=== PATIENT | female | born 1980 | race Caucasian/White ===

== ENCOUNTER 2017-06-14 13:00 | Outpatient (CLI) | payer BC ==
[2017-06-14 12:06] LABS: Hemoglobin 14.2 g/dL (12.0-16.0); Mean Corpuscular HGB CONC 33.6 g/dL (32.0-36.0); Mean Corpuscular Hemoglobin 31.1 pg (27.0-31.0); Mean Corpuscular Volume 92.6 fl (81.0-99.0); Mean Platelet Volume 6.2 fL (7.4-10.4); Platelet Count 228 thou/uL (130-400); RBC Distribution Width 11.6 % (11.5-14.5); Red Blood Cell (RBC) Count 4.56 mill/uL (4.20-5.40); White Blood Cell (WBC) Count 8.2 thou/uL (4.8-10.8)
[2017-06-14 12:16] LABS: BHCG - Serum Negative (NEGATIVE); Pregs Control Background? CLEAR/WHITE (CLR/WHITE); Pregs Control Bar Appear? YES (CONTROL BAR)
== END 2017-06-14 13:01 | disposition home or self-care (01) ==
LOC: LABBT 13:00
PROVIDERS: ATTEND Orthopaedic Surgery Hand Surgery
DX: Z01.812 Encounter for preprocedural laboratory examination (principal); L72.8 Other follicular cysts of the skin and subcutaneous tissue
CPT/HCPCS: 84703; 85027

== ENCOUNTER 2017-06-15 07:07 | Day surgery (SDC) | payer BC ==
[2017-06-14 10:57] VITALS: BMI 23.5
[2017-06-15] MEDS ORDERED: Scopolamine 1.5 mg/72 hour Patch ONE (08:34)
[2017-06-15] MEDS ORDERED: CEFAZOLIN/Water 2 GM/20 ML SYRINGE ONE (08:37)
[2017-06-15] MEDS ORDERED: Bupivacaine PF 0.5% 30 ML VIAL ONE (09:06)
[2017-06-15] MEDS ORDERED: Betamet Acet/Betamet Na Ph 30 MG/5 ML VIAL ONE (09:06)
[2017-06-15] MEDS ORDERED: Bacitracin Zinc Ointment 30 gm TUBE ONE (09:06)
[2017-06-15] MEDS ORDERED: Ondansetron HCl/PF 4 MG/2 ML Vial ONE ×2 (09:09→19:40)
[2017-06-15] MEDS ORDERED: Metoclopramide HCl 10 MG/2 ML VIAL ONE ×2 (09:09→19:40)
[2017-06-15] MEDS ORDERED: Fentanyl 100 MCG/2 ML VIAL ONE (09:09)
[2017-06-15] MEDS ORDERED: Clindamycin/D5W 600 mg/50 ml Premix Bag ONE (09:20)
[2017-06-15] MEDS ORDERED: HYDROcodone/Acetaminophen 5/325 mg Tablet ONE (11:59)
--- NOTE | 2017-06-15 16:39 | OP ---
DATE OF PROCEDURE: 06/15/2017 PREOPERATIVE DIAGNOSIS: Small finger blue domed cyst. POSTOPERATIVE DIAGNOSIS: A 6 x 4 mm blue domed cyst slightly more radial than central, mid proximal phalanx. PROCEDURES PERFORMED: 1. Excisional biopsy of blue domed cyst, left small finger. 2. Ulnar digital nerve neuroplasty, small finger. 3. Application of Celestone, 3 mL in the area of the cyst and neuroplasty. TOURNIQUET TIME: 5 minutes. SURGEON: Eros Hahn M.D. ANESTHESIA: General LMA technique augmented by Marcaine block 8 mL. INDICATIONS: The patient with a painful mass that oscillates in size, sometimes it is blue color and sometimes not, and would not resolve with rest and immobilization. DESCRIPTION OF PROCEDURE: After successful general LMA technique, the limb was prepped and draped. Timeout was done appropriately and we then injected the area at the metacarpophalangeal joint with Ma rcaine. A tourniquet was inflated after exsanguination of the limb to 250 mmHg pressure. We made a modified Karl incision centered over the mass and dissected back towards the midline and then local ized the mass. Back wall of the mass was almost adherent to the nerve sheath on the ulnar side, so I did do a neuroplasty to separate the nerve. This was done without complication. Then lifted the cyst off the center portion of the fascia and it was cystic, and it was blue color co nsist of, I believe blue domed cyst of possible venous origin. We then removed the cyst, placed a 3 mL of Celestone over the area of the dissection with drip technique. Then, the tourniquet was deflat ed. Hemostasis obtained. Closed the wound with interrupted 5-0 nylon in a simple pattern. Bulky dr essing was applied and the patient left the operating room without evidence of anesthetic or operativ e complication.
[2017-06-15] MEDS ORDERED: Ketorolac Tromethamine 30 MG/ML VIAL ONE (19:40)
[2017-06-15] MEDS ORDERED: PROPOFOL 200 MG/20 ML VIAL ONE (19:40)
[2017-06-15] MEDS ORDERED: Dexamethasone 20 MG/5 ML VIAL ONE (19:40)
[2017-06-15] MEDS ORDERED: Lidocaine 1% PF 5 ML VIAL ONE (19:40)
== END 2017-06-15 12:09 | disposition home or self-care (01) ==
LOC: SDC 07:07
PROVIDERS: ATTEND Orthopaedic Surgery Hand Surgery
PROC: 0KBD0ZZ Excision of Left Hand Muscle, Open Approach (ICD-10-PCS; principal; 2017-06-15)
PROC: 01Q40ZZ Repair Ulnar Nerve, Open Approach (ICD-10-PCS; principal; 2017-06-15)
DX: D21.12 Benign neoplasm of connective and other soft tissue of left upper limb, including shoulder (principal); Z88.0 Allergy status to penicillin; Z88.5 Allergy status to narcotic agent; Z88.8 Allergy status to other drugs, medicaments and biological substances
CPT/HCPCS: 88305; J0131; J0702; J1100; J1885; J2001; J2405; J2704; J2765; J3010; J3490; S0020

== ENCOUNTER 2020-09-16 09:10 | Outpatient (CLI) | payer BC | END 2020-09-16 09:11 | disposition home or self-care (01) | LOC: CTENTCT 09:10 | PROVIDERS: ATTEND Otolaryngology Plastic Surgery within the Head & Neck | DX: J32.9 Chronic sinusitis, unspecified (principal) | CPT/HCPCS: 70486 ==

== ENCOUNTER 2020-10-08 12:43 | Outpatient (CLI) | payer BC ==
[2020-10-09 19:54] LABS: SARS-CoV-2 PCR by NAA Not Detected (NotDetected)
== END 2020-10-08 12:44 | disposition home or self-care (01) ==
LOC: LABBT 12:43
PROVIDERS: ATTEND Otolaryngology Plastic Surgery within the Head & Neck
DX: Z01.812 Encounter for preprocedural laboratory examination (principal); J32.8 Other chronic sinusitis; G50.1 Atypical facial pain; J34.3 Hypertrophy of nasal turbinates; R09.81 Nasal congestion; Z20.822 Contact with and (suspected) exposure to COVID-19
CPT/HCPCS: 85014; U0003; U0005

== ENCOUNTER 2021-01-25 07:01 | Outpatient (CLI) | payer BC ==
[2021-01-25 16:45] LABS: SARS-CoV-2 PCR by NAA Not Detected (NotDetected)
== END 2021-01-25 07:02 | disposition home or self-care (01) ==
LOC: LABBT 07:01
PROVIDERS: ATTEND Otolaryngology Plastic Surgery within the Head & Neck
DX: Z01.812 Encounter for preprocedural laboratory examination (principal); Z20.822 Contact with and (suspected) exposure to COVID-19
CPT/HCPCS: 85014; U0003; U0005

== ENCOUNTER 2021-01-26 06:40 | Day surgery (SDC) | payer BC ==
[2021-01-25 12:36] VITALS: BMI 22.3
[2021-01-26] MEDS ORDERED: Oxymetazoline HCl 0.05% (30 ML BOT) ONE (09:33)
[2021-01-26] MEDS ORDERED: Lidocaine 1% w/Epinephrine 1:100K 20 ML VIAL ONE ×2 (09:33→09:37)
[2021-01-26] MEDS ORDERED: Ciprofloxacin 0.2% Otic (0.25ML CONTAINER) ONE (09:37)
[2021-01-26] MEDS ORDERED: Fentanyl 100 MCG/2 ML VIAL ONE ×2 (09:42→11:27)
[2021-01-26] MEDS ORDERED: Scopolamine 1.5 mg/72 hour Patch ONE (09:42)
[2021-01-26] MEDS ORDERED: SUGAMMADEX SODIUM 200 MG/2 ML VIAL ONE (09:42)
[2021-01-26] MEDS ORDERED: PROPOFOL 200 MG/20 ML VIAL ONE (09:54)
[2021-01-26] MEDS ORDERED: Ondansetron PF 4 MG/2 ML Vial ONE (09:54)
[2021-01-26] MEDS ORDERED: Lidocaine 1% PF 5 ML VIAL ONE (09:54)
[2021-01-26] MEDS ORDERED: Rocuronium Bromide 10 MG/ML (10ML VIAL) ONE (09:54)
[2021-01-26] MEDS ORDERED: HYDROcodone/Acetaminophen 5/325 mg Tablet ONE (12:45)
== END 2021-01-26 13:15 | disposition home or self-care (01) ==
LOC: SDC 06:40
PROVIDERS: ATTEND Otolaryngology Plastic Surgery within the Head & Neck
PROC: 09U88JZ Supplement Left Tympanic Membrane with Synthetic Substitute, Via Natural or Artificial Opening Endoscopic (ICD-10-PCS; principal; 2021-01-26)
PROC: 09U78JZ Supplement Right Tympanic Membrane with Synthetic Substitute, Via Natural or Artificial Opening Endoscopic (ICD-10-PCS; principal; 2021-01-26)
PROC: 097G8ZZ Dilation of Left Eustachian Tube, Via Natural or Artificial Opening Endoscopic (ICD-10-PCS; principal; 2021-01-26)
PROC: 097F8ZZ Dilation of Right Eustachian Tube, Via Natural or Artificial Opening Endoscopic (ICD-10-PCS; principal; 2021-01-26)
DX: H72.93 Unspecified perforation of tympanic membrane, bilateral (principal); H69.83 Other specified disorders of Eustachian tube, bilateral; J32.9 Chronic sinusitis, unspecified; J30.9 Allergic rhinitis, unspecified; J34.3 Hypertrophy of nasal turbinates; Z79.899 Other long term (current) drug therapy; Z88.0 Allergy status to penicillin; Z88.5 Allergy status to narcotic agent; Z88.6 Allergy status to analgesic agent; Z91.018 Allergy to other foods
CPT/HCPCS: C1726; J2405; J2704; J3010

== ENCOUNTER 2021-08-17 09:06 | Outpatient (CLI) | payer BC | END 2021-08-17 09:07 | disposition home or self-care (01) | LOC: LABBT 09:06 | PROVIDERS: ATTEND Otolaryngology Otology & Neurotology | DX: H72.92 Unspecified perforation of tympanic membrane, left ear (principal); H69.82 Other specified disorders of Eustachian tube, left ear; H92.12 Otorrhea, left ear | CPT/HCPCS: 85014; 87811 ==

== ENCOUNTER 2021-08-22 07:00 | Day surgery (SDC) | payer BC ==
[2021-08-18 14:30] VITALS: BMI 23.1
[2021-08-22] MEDS ORDERED: Neomycin-Polymyxin 1 ML AMP ONE (07:10)
[2021-08-22] MEDS ORDERED: EPINEPHrine 1 MG/ML AMP ONE (07:10)
[2021-08-22] MEDS ORDERED: Lidocaine 1% w/Epinephrine 1:100K 20 ML VIAL ONE (07:10)
[2021-08-22] MEDS ORDERED: Bacitracin Zinc Ointment 30 gm TUBE ONE ×2 (07:10→07:12)
[2021-08-22] MEDS ORDERED: Bupivacaine 0.25% HCL 30 ML VIAL ONE (07:10)
[2021-08-22] MEDS ORDERED: fentaNYL Citrate/PF 100 MCG/2 ML SYRINGE ONE (07:19)
[2021-08-22] MEDS ORDERED: HYDROmorphone 0.5 MG/0.5 ML SYRINGE ONE (07:19)
[2021-08-22] MEDS ORDERED: Scopolamine 1.5 mg/72 hour Patch ONE (07:29)
[2021-08-22] MEDS ORDERED: Midazolam HCl 2 mg/2 ml Vial ONE (07:51)
[2021-08-22] MEDS ORDERED: Dexamethasone 20 MG/5 ML VIAL ONE (08:04)
[2021-08-22] MEDS ORDERED: Metoclopramide HCl 10 MG/2 ML VIAL ONE (08:04)
[2021-08-22] MEDS ORDERED: diphenhydrAMINE 50 MG/ML VIAL ONE (08:04)
[2021-08-22] MEDS ORDERED: Ketorolac Tromethamine 30 MG/ML VIAL ONE ×2 (08:04→10:02)
[2021-08-22] MEDS ORDERED: Succinylcholine 200 MG/10 ml SYRINGE FS ONE (08:04)
[2021-08-22] MEDS ORDERED: Ondansetron PF 4 MG/2 ML Vial ONE (08:04)
[2021-08-22] MEDS ORDERED: Lidocaine 1% PF 5 ML VIAL ONE (08:04)
[2021-08-22] MEDS ORDERED: PROPOFOL 200 MG/20 ML VIAL ONE (08:04)
[2021-08-22] MEDS ORDERED: Fentanyl 100 MCG/2 ML VIAL ONE ×2 (10:04→10:36)
[2021-08-22] MEDS ORDERED: HYDROcodone/Acetaminophen 5/325 mg Tablet ONE (11:14)
== END 2021-08-22 11:56 | disposition home or self-care (01) ==
LOC: SDC 07:00
PROVIDERS: ATTEND Otolaryngology Otology & Neurotology
PROC: 09U607Z Supplement Left Middle Ear with Autologous Tissue Substitute, Open Approach (ICD-10-PCS; principal; 2021-08-22)
PROC: 0NB60ZZ Excision of Left Temporal Bone, Open Approach (ICD-10-PCS; principal; 2021-08-22)
DX: H66.92 Otitis media, unspecified, left ear (principal); H72.92 Unspecified perforation of tympanic membrane, left ear; Z79.899 Other long term (current) drug therapy; Z88.0 Allergy status to penicillin; Z88.5 Allergy status to narcotic agent; Z91.018 Allergy to other foods
CPT/HCPCS: C1781; J0171; J1100; J1170; J1200; J1885; J2250; J2405; J2704; J2765; J3010; S0020